=== PATIENT | female | born 1975 | race Caucasian/White ===

== ENCOUNTER 2018-02-17 15:44 | Outpatient (CLI) | payer BC, SELFPAY ==
[2018-02-17 16:13] LABS: Abs Immature Grans 0.01 k/cumm (0.0-0.09); Absolute Basophil Count 0.03 k/cumm (0.0-0.2); Absolute Eosinophil Count 0.11 k/cumm (0.0-0.7); Absolute Lymphocyte Count 2.47 k/cumm (1.2-3.4); Absolute Neutrophil Count 4.22 k/cumm (1.2-6.7); Basophils % 0.4; Eosinophils % 1.5; HCT 38.6 % (36.0-46.0); HGB 13.2 g/dL (12.0-15.5); Immature Grans % 0.1; Lymphocytes % 34.1; Mean Corp. HGB Concentration 34.2 g/dL (32.0-36.0); Mean Corpuscular Hemoglobin 28.6 pg (27.0-33.0); Mean Corpuscular Volume 83.5 fL (80-95); Mean Platelet Volume 8.8 fL (8.0-11.0); Monocytes % 5.5; Neutrophils % 58.4; Platelet Count 236 x1000/uL (130-400); RBC 4.62 m/cumm (4.00-5.20); RBC Distribution Width 12.8 % (11.7-14.6); White Blood Cell Count 7.24 k/cumm (4.4-10.8)
[2018-02-17 17:24] LABS: ALT 24 U/L (12-78); AST 18 U/L (15-37); Albumin 3.6 g/dL (3.4-5.0); Alkaline Phosphatase 42 U/L (46-116); Bilirubin, Direct 0.13 mg/dL (0.00-0.20); Bilirubin, Total 0.5 mg/dL (0.2-1.0); C-Reactive Protein 0.11 mg/dL (0.0-0.3); Total Protein 6.5 g/dL (6.4-8.2)
== END 2018-02-17 16:04 ==
PROVIDERS: PCP Family Medicine; Visit Provider Internal Medicine Gastroenterology
DX: K52.9 Noninfective gastroenteritis and colitis, unspecified (principal); Z79.899 Other long term (current) drug therapy
CPT/HCPCS: 36415; 80076; 85025; 86140

== ENCOUNTER 2018-06-02 15:43 | Outpatient (CLI) | payer BC, SELFPAY ==
[2018-06-02 17:34] LABS: ALT 24 U/L (12-78); AST 19 U/L (15-37); Albumin 3.6 g/dL (3.4-5.0); Alkaline Phosphatase 47 U/L (46-116); Bilirubin, Total 0.3 mg/dL (0.2-1.0); Total Protein 6.8 g/dL (6.4-8.2); Vitamin B12 316 pg/mL (193-986)
[2018-06-02 18:41] LABS: Bilirubin, Direct 0.08 mg/dL (0.00-0.20); C-Reactive Protein 0.13 mg/dL (0.0-0.3)
[2018-06-02 19:05] LABS: Abs Immature Grans 0.01 k/cumm (0.0-0.09); Absolute Basophil Count 0.02 k/cumm (0.0-0.2); Absolute Eosinophil Count 0.13 k/cumm (0.0-0.7); Absolute Lymphocyte Count 2.23 k/cumm (1.2-3.4); Absolute Monocyte Count 0.32 k/cumm (0.11-0.7); Absolute Neutrophil Count 3.71 k/cumm (1.2-6.7); Basophils % 0.3; HGB 12.9 g/dL (12.0-15.5); Immature Grans % 0.2; Lymphocytes % 34.7; Mean Corp. HGB Concentration 33.1 g/dL (32.0-36.0); Mean Corpuscular Hemoglobin 28.4 pg (27.0-33.0); Mean Corpuscular Volume 85.7 fL (80-95); Mean Platelet Volume 9.7 fL (8.0-11.0); Neutrophils % 57.8; Platelet Count 228 x1000/uL (130-400); RBC 4.55 m/cumm (4.00-5.20); RBC Distribution Width 12.7 % (11.7-14.6); White Blood Cell Count 6.42 k/cumm (4.4-10.8)
[2018-06-04 18:23] LABS: Adalimumab QN with Reflex Ab 10.7 mcg/mL
== END 2018-06-02 16:03 ==
PROVIDERS: PCP Family Medicine; Visit Provider Internal Medicine Gastroenterology
DX: K50.819 Crohn's disease of both small and large intestine with unspecified complications (principal); K50.918 Crohn's disease, unspecified, with other complication; Z79.899 Other long term (current) drug therapy
CPT/HCPCS: 36415; 80076; 82306; 83520; 82607; 85025; 86140

== ENCOUNTER 2018-11-10 13:31 | Outpatient (CLI) | payer BC, SELFPAY ==
[2018-11-10 14:02] LABS: Abs Immature Grans 0.01 k/cumm (0.0-0.09); Absolute Basophil Count 0.02 k/cumm (0.0-0.2); Absolute Eosinophil Count 0.09 k/cumm (0.0-0.7); Absolute Monocyte Count 0.32 k/cumm (0.11-0.7); Absolute Neutrophil Count 2.92 k/cumm (1.2-6.7); Basophils % 0.4; Eosinophils % 1.6; HCT 37.9 % (36.0-46.0); HGB 12.5 g/dL (12.0-15.5); Immature Grans % 0.2; Lymphocytes % 39.6; Mean Corpuscular Hemoglobin 27.8 pg (27.0-33.0); Mean Corpuscular Volume 84.2 fL (80-95); Mean Platelet Volume 9.2 fL (8.0-11.0); Monocytes % 5.8; Neutrophils % 52.4; Platelet Count 219 x1000/uL (130-400); RBC Distribution Width 12.8 % (11.7-14.6); White Blood Cell Count 5.56 k/cumm (4.4-10.8)
[2018-11-10 14:53] LABS: ALT 22 U/L (12-78); AST 16 U/L (15-37); Albumin 3.5 g/dL (3.4-5.0); Alkaline Phosphatase 41 U/L (46-116); Bilirubin, Direct 0.11 mg/dL (0.00-0.20); Bilirubin, Total 0.4 mg/dL (0.2-1.0); C-Reactive Protein 0.08 mg/dL (0.0-0.3); Total Protein 6.2 g/dL (6.4-8.2)
== END 2018-11-10 13:51 ==
PROVIDERS: PCP Family Medicine; Visit Provider Internal Medicine Gastroenterology
DX: K50.819 Crohn's disease of both small and large intestine with unspecified complications (principal)
CPT/HCPCS: 36415; 80076; 85025; 86140

== ENCOUNTER 2019-01-05 15:40 | Outpatient (CLI) | payer BC, SELFPAY ==
[2019-01-05 17:23] LABS: Vitamin D 25 Total 45.9 ng/ml (30-100)
== END 2019-01-05 16:00 ==
PROVIDERS: PCP Family Medicine; Visit Provider Internal Medicine Gastroenterology
DX: K50.819 Crohn's disease of both small and large intestine with unspecified complications (principal)
CPT/HCPCS: 36415; 80076; 82306; 85025; 86140

== ENCOUNTER 2019-03-09 11:23 | Outpatient (CLI) | payer BC, SELFPAY ==
[2019-03-09 12:41] LABS: Absolute Basophil Count 0.02 k/cumm (0.0-0.2); Absolute Eosinophil Count 0.07 k/cumm (0.0-0.7); Absolute Lymphocyte Count 1.76 k/cumm (1.2-3.4); Absolute Neutrophil Count 2.73 k/cumm (1.2-6.7); Basophils % 0.4; Eosinophils % 1.4; HCT 38.4 % (36.0-46.0); HGB 12.6 g/dL (12.0-15.5); Lymphocytes % 36.1; Mean Corp. HGB Concentration 32.8 g/dL (32.0-36.0); Mean Corpuscular Hemoglobin 27.9 pg (27.0-33.0); Mean Platelet Volume 8.9 fL (8.0-11.0); Monocytes % 6.1; Platelet Count 262 x1000/uL (130-400); RBC 4.52 m/cumm (4.00-5.20); RBC Distribution Width 13.2 % (11.7-14.6); White Blood Cell Count 4.88 k/cumm (4.4-10.8)
[2019-03-09 13:18] LABS: ALT 25 U/L (14-59); AST 14 U/L (15-37); Albumin 3.6 g/dL (3.4-5.0); Alkaline Phosphatase 39 U/L (46-116); Bilirubin, Direct 0.14 mg/dL (0.00-0.20); Bilirubin, Total 0.5 mg/dL (0.2-1.0); Total Protein 6.3 g/dL (6.4-8.2)
[2019-03-09 13:42] LABS: Vitamin D 25 Total 18.3 ng/ml (30-100)
== END 2019-03-09 11:43 ==
PROVIDERS: PCP Family Medicine; Visit Provider Internal Medicine Gastroenterology
DX: K50.819 Crohn's disease of both small and large intestine with unspecified complications (principal)
CPT/HCPCS: 36415; 80076; 82306; 85025; 86140

== ENCOUNTER 2019-06-15 10:02 | Outpatient (CLI) | payer OTHER, SELFPAY ==
[2019-06-15 15:15] LABS: Abs Immature Grans 0.01 k/cumm (0.0-0.09); Absolute Basophil Count 0.03 k/cumm (0.0-0.2); Absolute Eosinophil Count 0.13 k/cumm (0.0-0.7); Absolute Lymphocyte Count 2.37 k/cumm (1.2-3.4); Absolute Monocyte Count 0.35 k/cumm (0.11-0.7); Absolute Neutrophil Count 4.37 k/cumm (1.2-6.7); Basophils % 0.4; Eosinophils % 1.8; HCT 39.5 % (36.0-46.0); HGB 13.1 g/dL (12.0-15.5); Immature Grans % 0.1 %; Lymphocytes % 32.6; Mean Corp. HGB Concentration 33.2 g/dL (32.0-36.0); Mean Corpuscular Hemoglobin 27.6 pg (27.0-33.0); Mean Corpuscular Volume 83.2 fL (80-95); Mean Platelet Volume 8.7 fL (8.0-11.0); Monocytes % 4.8; Neutrophils % 60.3; Platelet Count 248 x1000/uL (130-400); RBC 4.75 m/cumm (4.00-5.20); RBC Distribution Width 12.9 % (11.7-14.6); White Blood Cell Count 7.26 k/cumm (4.4-10.8)
[2019-06-15 16:54] LABS: ALT 18 U/L (14-59); AST 17 U/L (15-37); Albumin 3.7 g/dL (3.4-5.0); Alkaline Phosphatase 41 U/L (46-116); Bilirubin, Direct 0.06 mg/dL (0.00-0.20); Bilirubin, Total 0.2 mg/dL (0.2-1.0); C-Reactive Protein 0.12 mg/dL (0.0-0.3); Total Protein 6.4 g/dL (6.4-8.2)
== END 2019-06-15 10:22 ==
PROVIDERS: PCP Family Medicine; Visit Provider Internal Medicine Gastroenterology
DX: K50.819 Crohn's disease of both small and large intestine with unspecified complications (principal)
CPT/HCPCS: 36415; 80076; 85025; 86140

== ENCOUNTER 2019-09-07 13:01 | Outpatient (REF) | payer OTHER, SELFPAY ==
[2019-09-07 22:08] LABS: TSH (W/Ref FT4) 0.93 uIU/mL (0.36-3.74)
== END 2019-09-07 13:21 ==
LOC: NCHCN 13:01
PROVIDERS: PCP Family Medicine; Visit Provider Nurse Practitioner Community Health
DX: F41.9 Anxiety disorder, unspecified (principal)
CPT/HCPCS: 84443

== ENCOUNTER 2019-11-16 02:25 | Outpatient (CLI) | payer OTHER, SELFPAY ==
[2019-11-16 10:40] LABS: Abs Immature Grans 0.01 k/cumm (0.0-0.09); Absolute Basophil Count 0.02 k/cumm (0.0-0.2); Absolute Eosinophil Count 0.12 k/cumm (0.0-0.7); Absolute Lymphocyte Count 2.08 k/cumm (1.2-3.4); Absolute Monocyte Count 0.29 k/cumm (0.11-0.7); Absolute Neutrophil Count 3.15 k/cumm (1.2-6.7); Basophils % 0.4; Eosinophils % 2.1; HGB 12.4 g/dL (12.0-15.5); Immature Grans % 0.2 %; Lymphocytes % 36.7; Mean Corp. HGB Concentration 33.5 g/dL (32.0-36.0); Mean Corpuscular Hemoglobin 28.1 pg (27.0-33.0); Mean Corpuscular Volume 83.9 fL (80-95); Mean Platelet Volume 9.1 fL (8.0-11.0); Monocytes % 5.1; Neutrophils % 55.5; Platelet Count 230 x1000/uL (130-400); RBC 4.41 m/cumm (4.00-5.20); RBC Distribution Width 12.8 % (11.7-14.6); White Blood Cell Count 5.67 k/cumm (4.4-10.8)
[2019-11-16 11:25] LABS: ALT 25 U/L (14-59); AST 25 U/L (15-37); Albumin 3.3 g/dL (3.4-5.0); Alkaline Phosphatase 38 U/L (46-116); Bilirubin, Direct 0.14 mg/dL (0.00-0.20); Bilirubin, Total 0.6 mg/dL (0.2-1.0); C-Reactive Protein 0.12 mg/dL (0.0-0.3); Total Protein 5.9 g/dL (6.4-8.2)
[2019-11-16 11:44] LABS: Vitamin D 25 Total 31.2 ng/ml (30-100)
== END 2019-11-16 02:45 ==
PROVIDERS: PCP Family Medicine; Visit Provider Internal Medicine Gastroenterology
DX: K50.819 Crohn's disease of both small and large intestine with unspecified complications (principal)
CPT/HCPCS: 36415; 80076; 82306; 85025; 86140

== ENCOUNTER 2019-11-23 10:17 | Outpatient (CLI) | payer OTHER, SELFPAY ==
[2019-11-25 18:56] LABS: SARS-CoV-2 RNA Undetected (Undetected); SARS-CoV-2 Specimen Source Nasopharynx
== END 2019-11-23 10:37 ==
LOC: LBO 10:17 → NCHCO 10:24
PROVIDERS: PCP Family Medicine; Visit Provider Family Medicine
DX: Z11.59 Encounter for screening for other viral diseases (principal); R05 Cough
CPT/HCPCS: U0003

== ENCOUNTER 2020-03-15 02:01 | Outpatient (CLI) | payer OTHER, SELFPAY ==
[2020-03-18 09:03] LABS: Adalimumab QN with Reflex Ab 17.1 mcg/mL
== END 2020-03-15 02:21 ==
PROVIDERS: PCP Family Medicine; Visit Provider Internal Medicine Gastroenterology
DX: K50.019 Crohn's disease of small intestine with unspecified complications (principal)
CPT/HCPCS: 36415; 82306; 83520

== ENCOUNTER 2020-04-12 01:49 | Outpatient (CLI) | payer OTHER, SELFPAY ==
[2020-04-12 11:00] LABS: Abs Immature Grans 0.01 10^3/uL (0.0-0.06); Absolute Basophil Count 0.02 10^3/uL (0.0-0.2); Absolute Eosinophil Count 0.16 10^3/uL (0.0-0.7); Absolute Lymphocyte Count 2.08 10^3/uL (1.2-3.4); Absolute Monocyte Count 0.42 10^3/uL (0.1-0.8); Absolute Neutrophil Count 3.18 10^3/uL (1.2-6.7); Basophils % 0.3; Eosinophils % 2.7; HCT 39.9 % (36.0-46.0); HGB 13.2 g/dL (11.2-15.7); Immature Grans % 0.2; Lymphocytes % 35.4; MCH 28.1 pg (27.0-33.0); MCHC 33.1 % (32.0-36.0); MCV 85.1 fL (80-95); MPV 8.7 fL (8.0-11.0); Monocytes % 7.2; Neutrophils % 54.2; Nucleated RBC 0 %; Platelet Count 195 10^3/uL (130-400); RBC 4.69 10^6/uL (3.93-5.22); RDW 13.2 % (11.7-14.6); RDW-SD 40.5 fL; WBC 5.87 10^3/uL (4.4-10.8)
[2020-04-12 11:44] LABS: ALT 19 U/L (14-59); AST 14 U/L (15-37); Albumin 3.5 g/dL (3.4-5.0); Alkaline Phosphatase 44 U/L (46-116); Bilirubin, Direct 0.14 mg/dL (0.00-0.20); Bilirubin, Total 0.6 mg/dL (0.2-1.0); C-Reactive Protein 0.06 mg/dL (0.0-0.3); Total Protein 6.2 g/dL (6.4-8.2)
== END 2020-04-12 02:09 ==
PROVIDERS: PCP Family Medicine; Visit Provider Internal Medicine Gastroenterology
DX: K50.019 Crohn's disease of small intestine with unspecified complications (principal)
CPT/HCPCS: 36415; 80076; 85025; 86140

== ENCOUNTER 2020-08-02 04:07 | Outpatient (CLI) | payer OTHER, SELFPAY ==
[2020-08-02 15:32] LABS: Abs Immature Grans 0.02 10^3/uL (0.0-0.06); Absolute Basophil Count 0.05 10^3/uL (0.0-0.2); Absolute Eosinophil Count 0.17 10^3/uL (0.0-0.7); Absolute Lymphocyte Count 2.59 10^3/uL (1.2-3.4); Absolute Neutrophil Count 4.03 10^3/uL (1.2-6.7); Basophils % 0.7; Eosinophils % 2.3; HGB 13.6 g/dL (11.2-15.7); Immature Grans % 0.3; Lymphocytes % 35.7; MCH 28.3 pg (27.0-33.0); MCHC 33.2 % (32.0-36.0); MCV 85.4 fL (80-95); MPV 8.9 fL (8.0-11.0); Monocytes % 5.5; Neutrophils % 55.5; Nucleated RBC 0 %; Platelet Count 260 10^3/uL (130-400); RDW 12.1 % (11.7-14.6); RDW-SD 37.7 fL; WBC 7.26 10^3/uL (4.4-10.8)
[2020-08-02 16:38] LABS: ALT 49 U/L (14-59); AST 26 U/L (15-37); Albumin 3.5 g/dL (3.4-5.0); Alkaline Phosphatase 55 U/L (46-116); Bilirubin, Direct 0.1 mg/dL (0.0-0.2); Bilirubin, Total 0.3 mg/dL (0.2-1.0); C-Reactive Protein 0.09 mg/dL (0.0-0.3); Total Protein 6.3 g/dL (6.4-8.2)
[2020-08-02 17:16] LABS: Vitamin B12 402 pg/mL (193-986)
== END 2020-08-02 04:08 | disposition home or self-care (01) ==
LOC: LBO 04:07
PROVIDERS: PCP Nurse Practitioner Community Health; Visit Provider Internal Medicine Gastroenterology
DX: K50.019 Crohn's disease of small intestine with unspecified complications (principal)
CPT/HCPCS: 36415; 80076; 82607; 85025; 86140

== ENCOUNTER 2020-12-09 02:41 | Outpatient (CLI) | payer OTHER, SELFPAY ==
[2020-12-09 13:38] LABS: Abs Immature Grans 0.02 10^3/uL (0.0-0.06); Absolute Basophil Count 0.04 10^3/uL (0.0-0.2); Absolute Eosinophil Count 0.04 10^3/uL (0.0-0.7); Absolute Lymphocyte Count 1.42 10^3/uL (1.2-3.4); Absolute Monocyte Count 0.24 10^3/uL (0.1-0.8); Absolute Neutrophil Count 5.33 10^3/uL (1.2-6.7); Basophils % 0.6; Eosinophils % 0.6; HCT 38.4 % (36.0-46.0); HGB 12.4 g/dL (11.2-15.7); Immature Grans % 0.3; MCH 27.2 pg (27.0-33.0); MCHC 32.3 % (32.0-36.0); MCV 84.2 fL (80-95); MPV 8.9 fL (8.0-11.0); Monocytes % 3.4; Neutrophils % 75.1; Nucleated RBC 0 %; Platelet Count 196 10^3/uL (130-400); RBC 4.56 10^6/uL (3.93-5.22); RDW 13.3 % (11.7-14.6); RDW-SD 41.1 fL; WBC 7.09 10^3/uL (4.4-10.8)
[2020-12-09 14:47] LABS: ALT 24 U/L (14-59); AST 13 U/L (15-37); Albumin 3.6 g/dL (3.4-5.0); Alkaline Phosphatase 40 U/L (46-116); Bilirubin, Direct 0.1 mg/dL (0.0-0.2); Bilirubin, Total 0.3 mg/dL (0.2-1.0); C-Reactive Protein 0.17 mg/dL (0.0-0.3); Total Protein 6.5 g/dL (6.4-8.2)
[2020-12-09 15:29] LABS: Vitamin B12 313 pg/mL (193-986)
== END 2020-12-09 02:42 | disposition home or self-care (01) ==
LOC: LBO 02:41
PROVIDERS: PCP Nurse Practitioner Community Health; Visit Provider Internal Medicine Gastroenterology
DX: K50.019 Crohn's disease of small intestine with unspecified complications (principal)
CPT/HCPCS: 36415; 80076; 82607; 85025; 86140

== ENCOUNTER 2021-04-19 02:53 | Outpatient (CLI) | payer OTHER, SELFPAY ==
[2021-04-19 12:02] LABS: Abs Immature Grans 0.01 10^3/uL (0.0-0.06); Absolute Basophil Count 0.04 10^3/uL (0.0-0.2); Absolute Eosinophil Count 0.09 10^3/uL (0.0-0.7); Absolute Lymphocyte Count 2.44 10^3/uL (1.2-3.4); Basophils % 0.6; Eosinophils % 1.5; HGB 12.7 g/dL (11.2-15.7); Immature Grans % 0.2; Lymphocytes % 39.5; MCH 28.3 pg (27.0-33.0); MCHC 32.6 % (32.0-36.0); MCV 87.1 fL (80-95); MPV 8.8 fL (8.0-11.0); Monocytes % 6.5; Neutrophils % 51.7; Nucleated RBC 0 %; Platelet Count 205 10^3/uL (130-400); RBC 4.48 10^6/uL (3.93-5.22); RDW 12.4 % (11.7-14.6); RDW-SD 39.5 fL; WBC 6.18 10^3/uL (4.4-10.8)
[2021-04-19 13:15] LABS: ALT 17 U/L (14-59); AST 10 U/L (15-37); Albumin 3.5 g/dL (3.4-5.0); Alkaline Phosphatase 37 U/L (46-116); Bilirubin, Direct 0.1 mg/dL (0.0-0.2); Bilirubin, Total 0.5 mg/dL (0.2-1.0); C-Reactive Protein 0.09 mg/dL (0.0-0.3); Total Protein 6.4 g/dL (6.4-8.2)
[2021-04-19 14:10] LABS: Vitamin B12 389 pg/mL (193-986)
== END 2021-04-19 02:54 | disposition home or self-care (01) ==
LOC: LBO 02:54
PROVIDERS: PCP Nurse Practitioner Community Health; Visit Provider Internal Medicine Gastroenterology
DX: K50.019 Crohn's disease of small intestine with unspecified complications (principal)
CPT/HCPCS: 80076; 82607; 85025; 86140

== ENCOUNTER 2021-06-01 02:38 | Outpatient (CLI) | payer OTHER, SELFPAY ==
[2021-06-01 10:15] VITALS: BP 121/79; PULSE 76; RESP 14; TEMP 36.9; O2SAT 100
[2021-06-01] MEDS: Normal Saline 250 ML 125 ML IV (10:25)
[2021-06-01 12:05] VITALS: BP 110/71; PULSE 63; RESP 16; TEMP 37.1; O2SAT 98
== END 2021-06-01 02:39 | disposition home or self-care (01) ==
PROVIDERS: PCP Nurse Practitioner Community Health; Visit Provider Family Medicine
DX: U07.1 COVID-19 (principal)
CPT/HCPCS: 96365; Q0047

== ENCOUNTER 2021-08-24 03:11 | Outpatient (CLI) | payer OTHER, SELFPAY ==
[2021-08-24 11:52] LABS: Abs Immature Grans 0.01 10^3/uL (0.0-0.06); Absolute Basophil Count 0.04 10^3/uL (0.0-0.2); Absolute Eosinophil Count 0.11 10^3/uL (0.0-0.7); Absolute Lymphocyte Count 3.15 10^3/uL (1.2-3.4); Absolute Monocyte Count 0.51 10^3/uL (0.1-0.8); Basophils % 0.5; Eosinophils % 1.3; HCT 42.2 % (36.0-46.0); HGB 13.5 g/dL (11.2-15.7); Immature Grans % 0.1; Lymphocytes % 38.3; MCH 28.5 pg (27.0-33.0); MCV 89 fL (80-95); MPV 8.9 fL (8.0-11.0); Monocytes % 6.2; Neutrophils % 53.6; Platelet Count 239 10^3/uL (130-400); RBC 4.73 10^6/uL (3.93-5.22); RDW 12.1 % (11.7-14.6); RDW-SD 39.7 fL; WBC 8.22 10^3/uL (4.4-10.8)
[2021-08-24 13:07] LABS: ALT 15 U/L (14-59); AST 12 U/L (15-37); Albumin 3.6 g/dL (3.4-5.0); Alkaline Phosphatase 45 U/L (46-116); Bilirubin, Direct 0.1 mg/dL (0.0-0.2); Bilirubin, Total 0.4 mg/dL (0.2-1.0); C-Reactive Protein 0.13 mg/dL (0.0-0.3); Total Protein 6.7 g/dL (6.4-8.2)
== END 2021-08-24 03:12 | disposition home or self-care (01) ==
LOC: LBO 03:11
PROVIDERS: PCP Nurse Practitioner Community Health; Visit Provider Internal Medicine Gastroenterology
DX: K50.019 Crohn's disease of small intestine with unspecified complications (principal)
CPT/HCPCS: 36415; 80076; 85025; 86140

== ENCOUNTER 2022-04-12 02:57 | Outpatient (CLI) | payer OTHER, SELFPAY ==
[2022-04-12 11:50] LABS: Abs Immature Grans 0.02 10^3/uL (0.0-0.06); Absolute Basophil Count 0.04 10^3/uL (0.0-0.2); Absolute Eosinophil Count 0.14 10^3/uL (0.0-0.7); Absolute Lymphocyte Count 2.92 10^3/uL (1.2-3.4); Absolute Monocyte Count 0.58 10^3/uL (0.1-0.8); Absolute Neutrophil Count 3.71 10^3/uL (1.2-6.7); Basophils % 0.5; Eosinophils % 1.9; HCT 38.6 % (36.0-46.0); Immature Grans % 0.3; Lymphocytes % 39.4; MCH 29.2 pg (27.0-33.0); MCHC 33.7 % (32.0-36.0); MCV 87 fL (80-95); MPV 8.7 fL (8.0-11.0); Monocytes % 7.8; Neutrophils % 50.1; Platelet Count 238 10^3/uL (130-400); RBC 4.45 10^6/uL (3.93-5.22); RDW 12.1 % (11.7-14.6); RDW-SD 38.6 fL; WBC 7.41 10^3/uL (4.4-10.8)
[2022-04-12 12:06] LABS: ALT 34 U/L (14-59); AST 23 U/L (15-37); Albumin 3.7 g/dL (3.4-5.0); Alkaline Phosphatase 44 U/L (46-116); Bilirubin, Direct 0.1 mg/dL (0.0-0.2); Bilirubin, Total 0.3 mg/dL (0.2-1.0)
== END 2022-04-12 02:58 | disposition home or self-care (01) ==
LOC: LBO 02:57
PROVIDERS: PCP Nurse Practitioner Community Health; Visit Provider Internal Medicine Gastroenterology
DX: K50.019 Crohn's disease of small intestine with unspecified complications (principal)
CPT/HCPCS: 36415; 80076; 85025; 86140

== ENCOUNTER 2022-05-31 16:14 | Outpatient (REF) | payer OTHER, SELFPAY ==
[2022-05-31 21:21] LABS: Abs Immature Grans 0.01 10^3/uL (0.0-0.06); Absolute Basophil Count 0.04 10^3/uL (0.0-0.2); Absolute Eosinophil Count 0.08 10^3/uL (0.0-0.7); Absolute Lymphocyte Count 2.15 10^3/uL (1.2-3.4); Absolute Monocyte Count 0.26 10^3/uL (0.1-0.8); Absolute Neutrophil Count 2.37 10^3/uL (1.2-6.7); Basophils % 0.8; Eosinophils % 1.6; HCT 38.8 % (36.0-46.0); HGB 13.1 g/dL (11.2-15.7); Immature Grans % 0.2; Lymphocytes % 43.8; MCH 28.9 pg (27.0-33.0); MCHC 33.8 % (32.0-36.0); MCV 86 fL (80-95); MPV 9.8 fL (8.0-11.0); Monocytes % 5.3; Neutrophils % 48.3; Platelet Count 228 10^3/uL (130-400); RBC 4.54 10^6/uL (3.93-5.22); RDW 12.1 % (11.7-14.6); RDW-SD 37.8 fL; WBC 4.91 10^3/uL (4.4-10.8)
[2022-05-31 21:22] LABS: ESR 3 mm/hr (0-20)
[2022-05-31 21:38] LABS: ALT 23 U/L (14-59); AST 19 U/L (15-37); Albumin 3.9 g/dL (3.4-5.0); Alkaline Phosphatase 43 U/L (46-116); Anion Gap 5.8 mmol/L (3-11); BUN 10 mg/dL (7-18); Bilirubin, Total 0.5 mg/dL (0.2-1.0); CO2 27.2 mmol/L (21.0-32.0); CREATININE 0.9 mg/dL (0.55-1.02); Calcium 8.6 mg/dL (8.5-10.1); Chloride 108 mmol/L (98-107); Estimated GFR 78.86 (mL/min/1.73m2); Glucose 91 mg/dL (74-106); Potassium 4.1 mmol/L (3.5-5.1); Sodium 141 mmol/L (136-145); TSH (W/Ref FT4) 1.15 uIU/mL (0.36-3.74)
[2022-05-31 21:39] LABS: C-Reactive Protein < 0.05 mg/dL (0.0-0.3)
[2022-05-31 21:51] LABS: Vitamin D 25 Total 35.6 ng/mL (30-100)
[2022-05-31 22:15] LABS: Vitamin B12 380 pg/mL (193-986)
== END 2022-05-31 16:15 | disposition home or self-care (01) ==
LOC: NCHCN 16:14
PROVIDERS: PCP Nurse Practitioner Community Health; Visit Provider Family Medicine
DX: R53.83 Other fatigue (principal); M07.60 Enteropathic arthropathies, unspecified site; E53.8 Deficiency of other specified B group vitamins; M25.512 Pain in left shoulder; M13.0 Polyarthritis, unspecified; M79.10 Myalgia, unspecified site; E55.9 Vitamin D deficiency, unspecified; Z13.29 Encounter for screening for other suspected endocrine disorder
CPT/HCPCS: 80053; 82306; 85652; 82607; 84443; 85025; 86140

== ENCOUNTER 2022-09-14 16:04 | Outpatient (REF) | payer OTHER, SELFPAY ==
--- NOTE | 2022-09-16 15:30 | PAPFT_PTH ---
PATIENT: Tashia Negron LOC: [facility]#:[id number] AGE/SX: 47/F ROOM: RE09/14/[address]: Pretty Travis : 1975 BED: DIS: 09/14/2022 SPEC #: [id number] RECD: 09/17/22 13:07 STATUS: DELONTE REQ #: [id number] KELLY: 09/16/22 15:[address]: Pretty Travis DEPT: [facility] Cytology RECD BY: Karine Ashley ENTERED: 09/17/22 13:07 SP TYPE: PAPFT OTHR DR: Angi Woods Tissues: 1 - CX/ENDOCX FOR PAP SMEARS Procedures: PAP THIN PREP/[facility] Screening HPV DNA PROBE Comments: [id number]
== END 2022-09-14 16:05 | disposition home or self-care (01) ==
LOC: NCHCN 16:04
PROVIDERS: PCP Nurse Practitioner Community Health; Visit Provider Family Medicine
DX: Z11.51 Encounter for screening for human papillomavirus (HPV) (principal); Z12.4 Encounter for screening for malignant neoplasm of cervix
CPT/HCPCS: 88142; 87624

== ENCOUNTER 2022-10-08 02:41 | Outpatient (CLI) | payer OTHER, SELFPAY ==
--- NOTE | 2022-10-08 | DI.MAMMO_ITS ---
Exam(s) MAMMO SCREENING EXAM: MAMMO SCREENING CLINICAL HISTORY: SCREENING, Z12.39. TECHNIQUE: Bilateral full field digital CC and MLO mammographic images were obtained with 3D tomosyn thesis and utilizing computer aided detection (CAD). COMPARISON: None. This is a baseline mammogram on 47-year-old patient. FINDINGS: There are no spiculated masses nor malignant appearing microcalcification groups. Benign vascular calcifications noted bilaterally. There is no significant architectural distortion nor skin thickening-retraction. IMPRESSION: No radiographic evidence of malignancy. BI-RADS Category 2 - Benign Findings Breast Density - Category B - Scattered areas of fibroglandular density Breast density Category C or D implies that the patient has dense breast tissue. Dense breast tissue can make it harder to find cancer on a mammogram. Dense breast tissue is also associated with an incr eased risk of breast cancer. This information about the result of the mammogram report was provided to the patient to raise their awareness. Use this report when you speak with the patient about their risks for breast cancer, which includes their family history. At that time, you may recommend additional screening tests (Ultrasoun d or MRI) as these tests may add significant information. A negative radiographic report should not delay biopsy if a dominant or clinically suspicious mass is present. Up to ten percent of cancers are not identified on mammography. A negative report may reinforce clinical impression. Adenosis and dense breasts may obscure an underlying neoplasm. False positive reports average 6 to 10%. Patient will receive a letter notifying them of these results.
== END 2022-10-08 03:01 ==
LOC: DI 02:42
PROVIDERS: PCP Nurse Practitioner Community Health; Visit Provider Family Medicine
DX: Z12.31 Encounter for screening mammogram for malignant neoplasm of breast (principal)
CPT/HCPCS: 77063; 77067

== ENCOUNTER 2022-12-24 02:30 | Outpatient (CLI) | payer OTHER, SELFPAY ==
[2022-12-24 09:50] LABS: Abs Immature Grans 0.01 10^3/uL (0.0-0.06); Absolute Basophil Count 0.04 10^3/uL (0.0-0.2); Absolute Eosinophil Count 0.09 10^3/uL (0.0-0.7); Absolute Lymphocyte Count 2.44 10^3/uL (1.2-3.4); Absolute Monocyte Count 0.26 10^3/uL (0.1-0.8); Absolute Neutrophil Count 2.55 10^3/uL (1.2-6.7); Basophils % 0.7; Eosinophils % 1.7; HCT 40.3 % (36.0-46.0); HGB 13.4 g/dL (11.2-15.7); Immature Grans % 0.2; Lymphocytes % 45.3; MCH 27.6 pg (27.0-33.0); MCHC 33.3 % (32.0-36.0); MCV 83 fL (80-95); MPV 8.8 fL (8.0-11.0); Monocytes % 4.8; Neutrophils % 47.3; Platelet Count 218 10^3/uL (130-400); RBC 4.86 10^6/uL (3.93-5.22); RDW 12.4 % (11.7-14.6); RDW-SD 37.9 fL; WBC 5.39 10^3/uL (4.4-10.8)
[2022-12-24 10:17] LABS: ALT 15 U/L (14-59); AST 17 U/L (15-37); Albumin 3.6 g/dL (3.4-5.0); Alkaline Phosphatase 46 U/L (46-116); Bilirubin, Direct 0.1 mg/dL (0.0-0.2); Bilirubin, Total 0.4 mg/dL (0.2-1.0); C-Reactive Protein 0.07 mg/dL (0.0-0.3); Total Protein 6.8 g/dL (6.4-8.2)
[2022-12-26 11:25] LABS: TB Interpretation Negative (Negative)
== END 2022-12-24 02:31 | disposition home or self-care (01) ==
PROVIDERS: PCP Nurse Practitioner Community Health; Visit Provider Internal Medicine Gastroenterology
DX: K50.819 Crohn's disease of both small and large intestine with unspecified complications (principal)
CPT/HCPCS: 36415; 80076; 82565; 85025; 86140; 86480

== ENCOUNTER 2023-02-01 02:25 | Outpatient (CLI) | payer OTHER, SELFPAY ==
[2023-02-01 16:41] LABS: Abs Immature Grans 0.02 10^3/uL (0.0-0.06); Absolute Basophil Count 0.04 10^3/uL (0.0-0.2); Absolute Eosinophil Count 0.11 10^3/uL (0.0-0.7); Absolute Lymphocyte Count 2.78 10^3/uL (1.2-3.4); Absolute Monocyte Count 0.34 10^3/uL (0.1-0.8); Absolute Neutrophil Count 4.87 10^3/uL (1.2-6.7); Basophils % 0.5; Eosinophils % 1.3; HCT 36.3 % (36.0-46.0); HGB 12.2 g/dL (11.2-15.7); Immature Grans % 0.2; Lymphocytes % 34.1; MCH 28.3 pg (27.0-33.0); MCHC 33.6 % (32.0-36.0); MCV 84 fL (80-95); MPV 9.1 fL (8.0-11.0); Monocytes % 4.2; Neutrophils % 59.7; Platelet Count 206 10^3/uL (130-400); RBC 4.31 10^6/uL (3.93-5.22); RDW 12.3 % (11.7-14.6); RDW-SD 37.4 fL; WBC 8.16 10^3/uL (4.4-10.8)
[2023-02-01 17:31] LABS: ALT 18 U/L (14-59); AST 16 U/L (15-37); Albumin 3.6 g/dL (3.4-5.0); Alkaline Phosphatase 40 U/L (46-116); Anion Gap 7.2 mmol/L (3-11); BUN 10 mg/dL (7-18); Bilirubin, Direct 0.1 mg/dL (0.0-0.2); Bilirubin, Total 0.2 mg/dL (0.2-1.0); CO2 25.8 mmol/L (21.0-32.0); CREATININE 0.9 mg/dL (0.55-1.02); Calcium 9.1 mg/dL (8.5-10.1); Chloride 105 mmol/L (98-107); Estimated GFR 78.86 (mL/min/1.73m2); Glucose 107 mg/dL (74-106); Potassium 3.6 mmol/L (3.5-5.1); Sodium 138 mmol/L (136-145); Total Protein 6.8 g/dL (6.4-8.2)
[2023-02-04 12:31] LABS: TB Interpretation Negative (Negative); TB1 Ag minus Nil 0.01 IU/ml; TB2 Ag minus Nil 0.02 IU/mL
[2023-02-04 12:49] LABS: ESR (LRH) 2 mm/hr
[2023-02-06 23:09] LABS: Adalimumab QN with Reflex Ab 14.5 mcg/mL
== END 2023-02-01 02:26 | disposition home or self-care (01) ==
PROVIDERS: PCP Nurse Practitioner Community Health; Visit Provider Physician Assistant Medical
DX: K50.90 Crohn's disease, unspecified, without complications (principal); M07.60 Enteropathic arthropathies, unspecified site; K50.819 Crohn's disease of both small and large intestine with unspecified complications; Z51.81 Encounter for therapeutic drug level monitoring
CPT/HCPCS: 36415; 80053; 80076; 83520; 85652; 85025; 86140; 86480

== ENCOUNTER 2023-02-02 16:06 | Outpatient (REF) | payer OTHER, SELFPAY ==
[2023-02-02 18:22] LABS: C Diff PCR Negative (Negative)
[2023-02-04 21:03] LABS: Campylobacter PCR Negative (Negative); Salmonella PCR Negative (Negative); Shiga Toxin PCR Negative (Negative); Shigella/Enteroinvasive Ecoli Negative (Negative)
[2023-02-06 18:36] LABS: Calprotectin <50.0 mcg/g
== END 2023-02-02 16:07 | disposition home or self-care (01) ==
LOC: LBN 16:06
PROVIDERS: PCP Nurse Practitioner Community Health; Visit Provider Internal Medicine Gastroenterology
DX: R19.7 Diarrhea, unspecified (principal); K50.819 Crohn's disease of both small and large intestine with unspecified complications
CPT/HCPCS: 87493; 87505; 83993

== ENCOUNTER 2023-07-09 04:27 | Outpatient (CLI) | payer OTHER, SELFPAY ==
[2023-07-09 12:35] LABS: Abs Immature Grans 0.01 10^3/uL (0.0-0.06); Absolute Basophil Count 0.04 10^3/uL (0.0-0.2); Absolute Eosinophil Count 0.11 10^3/uL (0.0-0.7); Absolute Lymphocyte Count 2.57 10^3/uL (1.2-3.4); Absolute Monocyte Count 0.35 10^3/uL (0.1-0.8); Absolute Neutrophil Count 3.89 10^3/uL (1.2-6.7); Basophils % 0.6; Eosinophils % 1.6; HCT 42.1 % (36.0-46.0); HGB 14.1 g/dL (11.2-15.7); Immature Grans % 0.1; Lymphocytes % 36.9; MCH 28.6 pg (27.0-33.0); MCHC 33.5 % (32.0-36.0); MCV 85 fL (80-95); MPV 9.1 fL (8.0-11.0); Neutrophils % 55.8; Platelet Count 237 10^3/uL (130-400); RBC 4.93 10^6/uL (3.93-5.22); RDW 12.6 % (11.7-14.6); RDW-SD 39.2 fL; WBC 6.97 10^3/uL (4.4-10.8)
[2023-07-09 13:02] LABS: ALT 16 U/L (14-59); AST 15 U/L (15-37); Albumin 3.7 g/dL (3.4-5.0); Alkaline Phosphatase 60 U/L (46-116); Bilirubin, Direct 0.1 mg/dL (0.0-0.2); Bilirubin, Total 0.4 mg/dL (0.2-1.0); C-Reactive Protein < 0.50 mg/dL (<or=0.5); Total Protein 7.3 g/dL (6.4-8.2)
== END 2023-07-09 04:28 | disposition home or self-care (01) ==
PROVIDERS: PCP Nurse Practitioner Community Health; Visit Provider Internal Medicine Gastroenterology
DX: K50.819 Crohn's disease of both small and large intestine with unspecified complications (principal)
CPT/HCPCS: 36415; 80076; 85025; 86140

== ENCOUNTER 2023-10-30 13:24 | Outpatient (REF) | payer OTHER, SELFPAY ==
[2023-10-31 12:55] LABS: Bacterial Vaginosis (BV) Negative (Negative); Candida glabrata Negative (Negative); Candida species group Negative (Negative); Trichomonas vaginalis Negative (Negative)
== END 2023-10-30 13:25 | disposition home or self-care (01) ==
LOC: NCHCN 13:24
PROVIDERS: PCP Nurse Practitioner Community Health; Visit Provider Family Medicine
DX: N76.0 Acute vaginitis (principal)
CPT/HCPCS: 81513; 87481; 87661

== ENCOUNTER 2024-04-27 03:27 | Outpatient (CLI) | payer OTHER, SELFPAY ==
[2024-04-27 16:45] LABS: Abs Immature Grans 0.02 10^3/uL (0.0-0.06); Absolute Basophil Count 0.03 10^3/uL (0.0-0.2); Absolute Eosinophil Count 0.08 10^3/uL (0.0-0.7); Absolute Lymphocyte Count 2.45 10^3/uL (1.2-3.4); Absolute Monocyte Count 0.54 10^3/uL (0.1-0.8); Absolute Neutrophil Count 3.37 10^3/uL (1.2-6.7); Basophils % 0.5 %; Eosinophils % 1.2 %; HCT 38.1 % (36.0-46.0); HGB 12.6 g/dL (11.2-15.7); Immature Grans % 0.3 %; Lymphocytes % 37.8 %; MCH 28.6 pg (27.0-33.0); MCHC 33.1 % (32.0-36.0); MCV 86 fL (80-95); MPV 9.1 fL (8.0-11.0); Monocytes % 8.3 %; Neutrophils % 51.9 %; Platelet Count 173 10^3/uL (130-400); RBC 4.41 10^6/uL (3.93-5.22); RDW 12.2 % (11.7-14.6); RDW-SD 38.6 fL; WBC 6.49 10^3/uL (4.4-10.8)
[2024-04-27 18:28] LABS: ALT 21 U/L (14-59); AST 22 U/L (15-37); Albumin 3.6 g/dL (3.4-5.0); Alkaline Phosphatase 49 U/L (46-116); Bilirubin, Total 0.27 mg/dL (0.2-1.0); Total Protein 6.7 g/dL (6.4-8.2)
[2024-04-27 18:30] LABS: Bilirubin, Direct < 0.1 mg/dL (0.0-0.2); C-Reactive Protein < 0.50 mg/dL (<or=0.5)
[2024-04-27 19:07] LABS: Vitamin B12 370 pg/mL (193-986)
== END 2024-04-27 03:28 | disposition home or self-care (01) ==
PROVIDERS: PCP Nurse Practitioner Community Health; Visit Provider Internal Medicine Gastroenterology
DX: K50.819 Crohn's disease of both small and large intestine with unspecified complications (principal)
CPT/HCPCS: 36415; 80076; 82607; 85025; 86140

== ENCOUNTER 2024-09-10 09:52 | Outpatient (REF) | payer OTHER, SELFPAY ==
[2024-09-10 16:07] LABS: Abs Immature Grans 0.01 10^3/uL (0.0-0.06); Absolute Basophil Count 0.04 10^3/uL (0.0-0.2); Absolute Lymphocyte Count 2.25 10^3/uL (1.2-3.4); Absolute Monocyte Count 0.29 10^3/uL (0.1-0.8); Absolute Neutrophil Count 1.85 10^3/uL (1.2-6.7); Basophils % 0.9 %; Eosinophils % 2.2 %; HCT 39.6 % (36.0-46.0); HGB 13.1 g/dL (11.2-15.7); Immature Grans % 0.2 %; Lymphocytes % 49.6 %; MCH 28.4 pg (27.0-33.0); MCHC 33.1 % (32.0-36.0); MCV 86 fL (80-95); MPV 9.9 fL (8.0-11.0); Monocytes % 6.4 %; Neutrophils % 40.7 %; Platelet Count 194 10^3/uL (130-400); RBC 4.61 10^6/uL (3.93-5.22); RDW 12.2 % (11.7-14.6); RDW-SD 38.5 fL; WBC 4.54 10^3/uL (4.4-10.8)
[2024-09-10 16:33] LABS: ALT 9 U/L (14-59); AST 17 U/L (15-37); Albumin 3.8 g/dL (3.4-5.0); Alkaline Phosphatase 48 U/L (46-116); BUN 8 mg/dL (7-18); Bilirubin, Total 0.8 mg/dL (0.2-1.0); CREATININE 0.9 mg/dL (0.55-1.02); Calcium 8.8 mg/dL (8.5-10.1); Calculated LDL 47 mg/dL (<100); Chloride 107 mmol/L (98-107); Cholesterol 130 mg/dL (<200); Estimated GFR 77.88 (mL/min/1.73m2); Glucose 103 mg/dL (74-106); HDL Cholesterol 72 mg/dL (>or=50); Potassium 3.9 mmol/L (3.5-5.1); Sodium 140 mmol/L (136-145); Triglyceride 55 mg/dL (<150)
== END 2024-09-10 09:53 | disposition home or self-care (01) ==
LOC: NCHCN 09:52
PROVIDERS: PCP Nurse Practitioner Community Health; Visit Provider Family Medicine
DX: D69.2 Other nonthrombocytopenic purpura (principal); Z13.220 Encounter for screening for lipoid disorders
CPT/HCPCS: 80053; 80061; 85025

== ENCOUNTER 2025-01-28 04:05 | Outpatient (CLI) | payer OTHER, SELFPAY ==
[2025-01-28 15:35] LABS: Abs Immature Grans 0.01 10^3/uL (0.0-0.06); HCT 42.1 % (36.0-46.0); HGB 13.6 g/dL (11.2-15.7); Immature Grans % 0.2 %; MCH 28.1 pg (27.0-33.0); MCHC 32.3 % (32.0-36.0); MCV 87 fL (80-95); MPV 8.8 fL (8.0-11.0); Platelet Count 222 10^3/uL (130-400); RBC 4.84 10^6/uL (3.93-5.22); RDW 12.6 % (11.7-14.6); RDW-SD 39.8 fL; WBC 5.61 10^3/uL (4.4-10.8)
[2025-01-28 17:26] LABS: ALT 23 U/L (14-59); AST 17 U/L (15-37); Albumin 4.2 g/dL (3.4-5.0); Alkaline Phosphatase 63 U/L (46-116); Bilirubin, Direct 0.1 mg/dL (0.0-0.2); Bilirubin, Total 0.5 mg/dL (0.2-1.0); Total Protein 7.4 g/dL (6.4-8.2)
[2025-01-28 17:29] LABS: C-Reactive Protein < 0.50 mg/dL (<or=0.5)
[2025-01-28 18:02] LABS: Vitamin D 25 Total 24 ng/mL (30-100)
[2025-01-29 16:18] LABS: Anion Gap 11.1 mmol/L (3-11); BUN 13 mg/dL (7-18); CO2 27.9 mmol/L (21.0-32.0); Calcium 9.2 mg/dL (8.5-10.1); Chloride 105 mmol/L (98-107); Estimated GFR 89.71 (mL/min/1.73m2); Glucose 86 mg/dL (74-106); Potassium 4.5 mmol/L (3.5-5.1); Sodium 144 mmol/L (136-145)
[2025-02-01 14:10] LABS: TB Interpretation Negative (Negative); TB1 Ag minus Nil 0.00 IU/mL; TB2 Ag minus Nil 0.02 IU/mL
== END 2025-01-28 04:06 | disposition home or self-care (01) ==
PROVIDERS: PCP Nurse Practitioner Community Health; Visit Provider Internal Medicine Gastroenterology
DX: K50.819 Crohn's disease of both small and large intestine with unspecified complications (principal)
CPT/HCPCS: 36415; 80048; 80076; 82306; 85025; 86140; 86480